=== PATIENT | female | born 1995 | race Caucasian/White ===

== ENCOUNTER 2018-02-05 09:06 | Emergency (ER) | payer OTHER ==
[2018-02-05 09:12] VITALS: BP 114/75
--- NOTE | 2018-02-05 09:28 | EDPHY ---
H & P Time Seen by Provider: 02/05/18 09:14 HPI/ROS: CHIEF COMPLAINT: Head injury, right elbow pain post syncopal episode HISTORY OF PRESENT ILLNESS: 22-year-old female generally healthy, no anticoagulant use arrives via private vehicle. Patient works at a daycare facility, describes having not eaten breakfast this morning, she was squatting on the floor, stood up, felt lightheaded, started to lower herself to the floor and had a syncopal episode, impacted the occipital region of her head as well as her right elbow. She is complaining of right elbow pain as well as nonprogressive headache which did not precede her symptoms. She denies: Midline C-spine pain, nausea, vomiting, gait instability, alcohol or drug use, amnesia, visual disturbance, incontinence, oral trauma, seizure disorder history, cardiac disorder history. PRIMARY CARE PROVIDER: Worker's compensation REVIEW OF SYSTEMS: 10 systems reviewed and negative with the exception of the elements mentioned in the history of present illness PAST MEDICAL/SURGICAL HISTORY: no anticoagulant use, no relevant medical/ surgical history SOCIAL HISTORY: denies alcohol use at time of incident. Works at a daycare facility. PHYSICAL EXAM 1) GENERAL: Well-developed, well-nourished, alert and oriented. Appears to be in no acute distress. Answering questions appropriately. GCS 15 2) HEAD: Normocephalic, occipital hematoma noted 3) HEENT: Pupils equal, round, reactive to light bilaterally. Negative Horners. Nasopharynx, oropharynx, clear. No deformity or angulation of nose. No septal hematoma. No rhinorrhea. No oral trauma. No tongue laceration. Ears bilaterally with normal tympanic membranes. No hemotympanum. No fluid or blood in the external auditory canal. No raccoon eyes. No Soriano sign. Teeth are normally aligned with no gross malocclusion, TMJ bilaterally nontender, facial bones nontender including the zygomatic arch, maxilla mandible. 4) NECK: No cervical collar is on. Posterior cervical spine is nontender, no stepoff, no effusion. Full range of motion which does not elicit any midline cervical spine pain, no posterior midline tenderness, no step-off. 5) LUNGS: Clear to auscultation bilaterally, no wheezes, no rhonchi, no retractions. No obvious signs of trauma. No chest wall pain. No flaring, no grunting. Moving symmetrically. No crepitus. 6) HEART: [Regular rate and rhythm, 7) ABDOMEN: No guarding, no rebound, no focal tenderness, no peritoneal signs, no signs of trauma, no ecchymosis. No incontinence. 8) MUSCULOSKELETAL: Right upper extremity: Tender to palpation olecranon process, no radial head pain. Intact skin. Full range of motion albeit with pain to dorsal aspect of the right elbow. Proximally distally nontender. Soft compartments. Otherwise, Moving all extremities, no focal areas of tenderness , no obvious trauma. 9) BACK: No midline vertebral tenderness, no fluctuance, no step-off, no obvious trauma, no visual or palpable abnormality. 10) SKIN: No laceration. No abrasion 11) NEURO: Awake, alert, and oriented to person, place and time. Answers questions appropriately. There were no obvious focal neurologic abnormalities. No cerebellar dysfunction. Cranial nerves 2 through to 12 intact. Normal steady gait. Upper and lower extremities bilaterally with strength 5 / 5, reflexes 2+. DIFFERENTIAL DIAGNOSIS: In no particular include but limited to vasovagal syncope, cardiac dysrhythmia, intracranial hemorrhage Smoking Status: Current some day smoker Constitutional: Initial Vital Signs Temperature (C) 36.7 C 02/05/18 09:08 Heart Rate 81 02/05/18 09:08 Respiratory Rate 16 02/05/18 09:08 Blood Pressure 114/75 02/05/18 09:08 O2 Sat (%) 97 02/05/18 09:08 O2 Delivery Mode Room Air Allergies/Adverse Reactions: ipratropium [From Atrovent] Allergy (Verified 02/05/18 09:07) Home Medications: Medication Instructions Recorded [place] 02/05/18 MDM/Departure - MDM Imaging Results: Imaging Impressions Elbow X-Ray 02/05/18 09:24 Impression: No acute osseous findings. Images reviewed myself Procedures: Procedure: Splint An upper extremity sling splint was applied by ER certified medication technician. After application of the splint I returned and re-examined the patient. The splint was adequately immobilizing the joint and distal to the splint the patient's circulation and sensation were intact. Patient shows no signs of compartment syndrome. Was given orthopedic precautions. ED Course/Re-evaluation: 9:27 a.m.: Patient currently answering questions appropriately, nonfocal neurologic exam, negative [place] head and C-spine decision-making tools. Discussed CT imaging of the head. I do not think that this is definitively indicated at this time. However this was after the patient she is in agreement she does not feel is indicated. She is complaining of focal right elbow pain and imaging studies will be performed of the right elbow. - Depart Disposition: Home, Routine, Self-Care Clinical Impression: Right elbow pain Head injury due to trauma Qualifiers: Encounter type: initial encounter Qualified Code(s): S09.90XA - Unspecified injury of head, initial encounter Condition: Good Instructions: Head Injury (ED), Elbow Sprain (ED) Additional Instructions: ALTHOUGH THERE IS NO EVIDENCE OF SERIOUS HEAD INJURY AT THIS TIME, DELAYED SIGNS CAN APPEAR 24 TO 48 HOURS AFTER INJURY. PLEASE RETURN TO THE EMERGENCY DEPARTMENT (ED) IMMEDIATELY IF YOU HAVE INCREASED HEADACHE, PERSISTENT HEADACHE , VOMITING, WEAKNESS, CONFUSION OR VISUAL PROBLEMS. WE RECOMMEND THAT YOU DO NOT RESUME CONTACT SPORTS OR ACTIVITIES THAT TAKE COORDINATION OR BALANCE SUCH SKIING OR RIDING A BICYCLE UNTIL CLEARED TO DO SO BY YOUR DOCTOR OR BY A NEUROLOGIST. Stand Alone Forms: Work Comp Follow Up, Work Excuse Referrals: Juanito Burks MD [Medical Doctor] - 5-7 days, call for appt.
== END 2018-02-05 10:05 | disposition home or self-care (01) ==
DX: S09.90XA Unspecified injury of head, initial encounter (principal); S59.901A Unspecified injury of right elbow, initial encounter; W19.XXXA Unspecified fall, initial encounter; Y92.210 Daycare center as the place of occurrence of the external cause; Y93.9 Activity, unspecified; Y99.0 Civilian activity done for income or pay